=== PATIENT | female | born 2000 | race Two or more races ===

== ENCOUNTER 2021-04-23 18:59 | Emergency (ER) | payer OTHER ==
[~2021-04-23] VITALS: Ht 167.6 cm; Wt 90.7 kg
[2021-04-23] MEDS ORDERED: TETANUS-DIPTH-ACEL PERTUSSIS 0.5ML SYR Tdap IM ONE (19:30)
[2021-04-23 20:13] LABS: Urine WBC None Seen /hpf (0 - 5)
[2021-04-23 20:47] LABS: Amphetamine Screen, Urine NEGATIVE (NEGATIVE); Barbiturate Scree,Urine NEGATIVE (NEGATIVE); Benzodiazephine Screen, Urine NEGATIVE (NEGATIVE); Cannabinoid Screen, Urine POSITIVE (NEGATIVE); Cocaine Screen, Urine NEGATIVE (NEGATIVE); Opiate Scree,Urine NEGATIVE (NEGATIVE); Phencyclidine Screen, Urine NEGATIVE (NEGATIVE)
[2021-04-23 20:51] LABS: Urine Bacteria NONE SEEN /hpf (None Seen); Urine Blood Negative /uL (Negative); Urine Specific Gravity 1.005 (1.001-1.035)
[2021-04-23 22:24] LABS: Basophils # (auto) 0 10 ^3/uL (0-0.2); Eosinophils # (auto) 0 10 ^3/uL (0-0.8); Eosinophils % (auto) 0.2 % (0.0-7.0); Monocytes # (auto) 0.4 10 ^3/uL (0-1.3); Monocytes % (auto) 3.9 % (0.0-12.0); Red Blood Cells 4.75 10^6/uL (4.0-5.20)
[2021-04-23 22:26] LABS: Basophils % (auto) 0.2 % (0.0-2.0); Hematocrit 31.5 % (36.0-46.0); Hemoglobin 9.9 g/dL (12.2-16.2); Lymphocytes # (auto) 2.2 10 ^3/uL (0.4-5.4); Lymphocytes % (auto) 24.2 % (10.0-50.0); Mean Corpuscular Hemoglobin 20.9 pg (28.0-32.0); Mean Corpuscular Hgb Conc. 31.5 g/dL (32.0-36.0); Mean Corpuscular Volume 66.3 fL (80.0-100.0); Neutrophils # (auto) 6.4 10 ^3/uL (1.6-8.6); Neutrophils % (auto) 71.5 % (37.0-80.0); Red Cell Distribution Width 18.8 % (11.8-14.3); White Blood Cell 8.9 10^3/uL (4.4-10.8)
[2021-04-23 22:37] LABS: Salicylate 2.4 mg/dL (2.8-20.0)
[2021-04-23 22:39] LABS: Acetaminophen < 2.0 ug/mL (10-30)
[2021-04-23 22:47] LABS: Albumin 3.8 g/dL (3.4-5.0); Calcium 8.7 mg/dL (8.5-10.1); Potassium 4.2 mmol/L (3.5-5.1)
[2021-04-23 22:51] LABS: BUN/Creatinine Ratio 7.6; Bilirubin, Total 0.2 mg/dL (0.2-1.0); Total Protein 7.6 g/dL (6.4-8.2)
[2021-04-24] MEDS ORDERED: LIDOCAINE 1% HCL (LOCAL ANESTH.) INJ 20ML MDV ID ONE ×2 (01:00→01:15)
[2021-04-24] MEDS ORDERED: NEOMYCIN-BACITRACIN-POLYM UNITDOSE PKG TOP OINT TOP ONE (01:00)
[2021-04-24 06:48] VITALS: BP 98/52
== END 2021-04-24 08:07 | disposition home or self-care (01) ==
LOC: ER 18:59 → EDBD 18:59 → ER 04-24 08:07
DX: S51.811A Laceration without foreign body of right forearm, initial encounter (principal); J45.909 Unspecified asthma, uncomplicated; X78.0XXA Intentional self-harm by sharp glass, initial encounter; Y93.89 Activity, other specified; Y92.89 Other specified places as the place of occurrence of the external cause; Y99.8 Other external cause status
CPT/HCPCS: 12005; 36415; 73090; 80053; 80307; 80320; 80329; 81001; 81025; 85025; 90471; 90715; 99285; J2001